=== PATIENT | female | born 1980 | race Caucasian/White ===

== ENCOUNTER → 2021-02-21 09:14 | Outpatient (CLI) | payer OTHER, SELFPAY ==
--- NOTE | ~2021-02-21 | US_ITS ---
US right upper quadrant DATE: 02/21/2021 09:41 INDICATION: Right upper quadrant abdominal pain TECHNIQUE: Real-time imaging and Doppler analysis of liver, pancreas, gallbladder areas COMPARISON: None FINDINGS: No hepatic or pancreatic space-occupying mass lesion is detected. Normal hepatopedal portal venous flow direction. No gallstones or gallbladder wall thickening. Negative sonographic Monsalve's s ign. The common bile duct measures 3.3 mm, normal. IMPRESSION: Normal examination Reviewed, dictated and finalized at [facility]. Reviewed, dictated and finalized at [facility]. IMPRESSION: Normal examination
== END ==
PROVIDERS: PCP Internal Medicine; Visit Provider Internal Medicine
DX: R10.11 Right upper quadrant pain (principal)
CPT/HCPCS: 76705

== ENCOUNTER → 2021-09-12 09:31 | Outpatient (CLI) | payer OTHER, SELFPAY ==
--- NOTE | ~2021-09-12 | MM_ITS ---
EXAMINATION: MM screening jeaneth BI w renetta HISTORY: Screening mammogram TECHNIQUE: Craniocaudal and mediolateral oblique 3-D tomosynthesis images were obtained and synthetic 2-D images were generated. CAD analysis was submitted and interpreted. COMPARISON: None, baseline BREAST PARENCHYMAL COMPOSITION: The breasts are heterogeneously dense, which may obscure small masses . FINDINGS: RIGHT BREAST: There is a possible mass in the anterior third of the lower-outer breast 5.5 cm from th e nipple. LEFT BREAST: There is a possible mass in the middle third of the central breast 5.5 cm from the nippl e. IMPRESSION: 1. Possible breast masses 2. Additional mammographic views and possible breast ultrasound are recommended. BI-RADS Category 0: Incomplete: Needs additional imaging evaluation. Reviewed, dictated and finalized at [facility]. IMPRESSION: 1. Possible breast masses 2. Additional mammographic views and possible breast ultrasound are recommended . BI-RADS Category 0: Incomplete: Needs additional imaging evaluation.
== END ==
PROVIDERS: PCP Internal Medicine; Visit Provider Internal Medicine
DX: Z12.31 Encounter for screening mammogram for malignant neoplasm of breast (principal); R92.8 Other abnormal and inconclusive findings on diagnostic imaging of breast
CPT/HCPCS: 77063; 77067

== ENCOUNTER → 2021-09-29 07:33 | Outpatient (CLI) | payer OTHER, SELFPAY ==
--- NOTE | ~2021-09-29 | MMUS_ITS ---
EXAMINATION: MM diagnostic jeaneth BI w renetta, US breast BI limited HISTORY: Possible breast masses on screening mammogram TECHNIQUE: Additional 3-D tomosynthesis images of the breasts were performed and synthetic 2-D images were generated. CAD analysis was submitted and interpreted. High resolution limited bilateral breast ultrasound was performed. COMPARISON: 09/12/2021 FINDINGS: MAMMOGRAPHIC FINDINGS: Right breast: There is a 5 mm oval, obscured, low density mass in the anterior/middle third of the ou ter breast at the 9:00 location approximately 5 cm from the nipple. Left breast: There is an approximately 7 mm equal density mass with indistinct margins in the middle third of the breast at the 12:00 location 5 cm from the nipple. ULTRASOUND: Right breast: There is a 7 mm x 3 mm oval, circumscribed, parallel, hypoechoic mass with no posterior features or internal vascularity at the 9:00 location 3 cm from the nipple. A 4 mm mass with similar sonographic features is seen at the 10:00 location 6 cm from the nipple. Left breast: There is an 8 mm x 3 mm parallel hypoechoic mass with angular margins, no posterior feat ures, and no internal vascularity at the 12:00 location 3 cm from the nipple. IMPRESSION: 1. Indeterminate left breast mass. Ultrasound-guided biopsy is recommended. 2. Probably benign right breast masses. Follow-up diagnostic right mammogram and ultrasound in six mo nths are recommended. BI-RADS category 4, suspicious findings. Reviewed, dictated and finalized at [facility]. IMPRESSION: 1. Indeterminate left breast mass. Ultrasound-guided biopsy is recommended. 2. Probably benign right breast masses. Follow-up diagnostic right mammogram an d ultrasound in six months are recommended. BI-RADS category 4, suspicious findings.
== END ==
PROVIDERS: PCP Internal Medicine; Visit Provider Internal Medicine
DX: R92.8 Other abnormal and inconclusive findings on diagnostic imaging of breast (principal)
CPT/HCPCS: 76642; 77062; 77066; G0279

== ENCOUNTER 2024-11-08 08:14 | Emergency (ER) | payer OTHER, SELFPAY ==
[2024-11-08 08:32] VITALS: BP 124/70; PULSE 109; RESP 16; TEMP 37.4; O2SAT 99
[2024-11-08 08:41] LABS: EDSTREPNEGPOS1 Positive (Negative)
--- NOTE | 2024-11-08 08:57 | ED.GENADULT ---
HPI - General Adult General Chief complaint: Upper Respiratory Infection Stated complaint: Sore Throat/Fever Source: patient Mode of arrival: ambulatory Limitations: no limitations History of Present Illness HPI narrative: Patient presents for evaluation of sore throat for last 2 days. She also reports headache, fever and chills. 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 She did telemedicine visit yesterday and received a prescription for azithromycin. She has taken one dose of the medication. She feels like her symptoms are worsening. She denies any nausea, vomiting, diarrhea, cough, shortness of breath. Related Data Home Medications ?Medication ?Instructions ?Recorded ?Confirmed ?Last Taken ?Type azithromycin 250 mg tablet mg 11/08/24 Unknown History Allergies Allergy/AdvReac Type Severity Reaction Status Date / Time Corticosteroids Allergy Severe MUSCLE Verified 11/08/24 08:28 (Glucocorticoids) SPASMS/ LEGS WITH HIGH DOSES acetaminophen Allergy Unknown Unknown Verified 11/08/24 08:28 Penicillins Allergy Unknown Unknown Verified 11/08/24 08:28 Review of Systems Review of Systems: CONSTITUTIONAL: Reports fever and chills. EYES: Denies visual changes, redness, or discharge. ENT: Reports sore throat. Denies rhinorrhea, congestion, or otalgia. CARDIOVASCULAR: Denies chest pain, palpitations, or edema. RESPIRATORY: Denies cough or dyspnea. GASTROINTESTINAL: Denies abdominal pain, nausea, vomiting, or diarrhea. GENITOURINARY: Denies dysuria or hematuria. SKIN: Denies rash or itching. MUSCULOSKELETAL: Denies back pain, joint pain, or myalgia. NEUROLOGIC: Denies headache, numbness, dizziness, or weakness. PSYCHIATRIC: Denies anxiety or depression. [facility] Past Medical History Medical History No pertinent past medical history Surgical History Surgical History No pertinent past surgical history Family History Family History Mother Family history non-contributory Social History Social History Smoking status: Never smoker Substance use: never Living arrangements: with family Additional occupation/education comments: teacher Gender identity (if verbalized by the patient): Female Sexual Orientation (if Verbalized by the Patient): Straight or Heterosexual Spiritual care concerns: No Exam Narrative: GENERAL: Well-appearing, well-nourished, and in no acute distress. HEAD: Normocephalic, atraumatic. EYES: PERRLA and EOMI. ENT: Nares clear, no rhinorrhea or epistaxis. Mucous membranes moist. Bilateral tonsillar swelling and erythema with white exudate. Uvula is midline. Bilateral TMs pearly liao nonbulging NECK: Supple. No adenopathy or masses. No carotid bruits or JVD CHEST: Clear to auscultation. No respiratory distress. No wheezes rales or rhonchi HEART: Regular rate and rhythm. No murmur heard. Normal peripheral pulses. ABDOMEN: Soft, nontender, nondistended, normal active bowel sounds. EXTREMITIES: Normal range of motion. No edema. SKIN: Warm, dry, no rash. NEURO: No focal deficits. Alert and oriented x3. PSYCH: Normal mood and affect. Course Course Emergency Course: This is a 44-year-old female who presented for evaluation of a sore throat. Rapid strep positive. We discussed treatment options. She has only taken one dose of azithromycin. We discussed continuing that therapy vs changing to another agent. She would like to have her abx switched. will avoid cephalosporins due to penicillin allergy. Will start clindamycin, which she states she has taken for and tolerated well. Follow-up with primary care provider. Go to the ER for worsening symptoms. Patient in agreement with plan of care. Level of Care: Express Care Visit Vital Signs Vital signs: Vital Signs Temperature 37.4 C 11/08/24 08:32 Pulse Rate 109 H 11/08/24 08:32 Respiratory Rate 16 11/08/24 08:32 Blood Pressure 124/70 11/08/24 08:32 Pulse Oximetry 99 11/08/24 08:32 Temperature 37.4 C 11/08/24 08:32 Pulse Rate 109 H 11/08/24 08:32 Respiratory Rate 16 11/08/24 08:32 Blood Pressure 124/70 11/08/24 08:32 Pulse Oximetry 99 11/08/24 08:32 Medical Decision Making Vital Signs Vital Signs: Vital Signs Temperature 37.4 C 11/08/24 08:32 Pulse Rate 109 H 11/08/24 08:32 Respiratory Rate 16 11/08/24 08:32 Blood Pressure 124/70 11/08/24 08:32 Pulse Oximetry 99 11/08/24 08:32 Temperature 37.4 C 11/08/24 08:32 Pulse Rate 109 H 11/08/24 08:32 Respiratory Rate 16 11/08/24 08:32 Blood Pressure 124/70 11/08/24 08:32 Pulse Oximetry 99 11/08/24 08:32 Lab Data Labs: Lab Results 11/08/24 Range/Units 08:38 POC Grp A Strep Screen Positive (Negative) Discharge Plan Discharge Clinical Impression: Strep throat Patient Disposition: Home Condition: Stable Instructions: Antibiotic Form, Strep Throat (ED) Patient Language: Malay Prescriptions: New clindamycin HCl [Cleocin HCl] 300 mg capsule 300 mg PO Q8H Qty: 30 0RF No Action azithromycin 250 mg tablet Follow-up/Referrals: Dayanna Howard DO [Physician] - Time of Disposition: 08:45
== END 2024-11-08 08:53 | disposition home or self-care (01) ==
PROVIDERS: Emergency Provider Nurse Practitioner
DX: J02.0 Streptococcal pharyngitis (principal)
CPT/HCPCS: 87880; 99213; G0463